=== PATIENT | female | born 1950 | race African-American/Black ===

== ENCOUNTER → 2017-01-21 | Outpatient (CLI) | payer OTHER ==
[~2017-01-21] MED LIST: ASPIRIN PO; ASPIRIN81 M2 PO; ATORVASTATIN; AUGMENTIN PO; BRILINTA90 MG PO; CARVEDILOL; CARVEDILOL25 MG PO; CETIRIZINE HCL10 MG PO; FLEXERIL PO; GABAPENTIN300 MG PO; HUMALOG100 U/ML; HYZAAR PO; LANTUS100 U/ML INJ; LANTUS100 UNITS/ SUBQ; LATANOPROST2.5 ML OU; LIPITOR80 MG PO; LISINOPRIL PO; LOPRESSOR PO; LOSARTAN; LOSARTAN-HCTZ1 EAC1 PO; METFORMIN PO; MICARDIS PO; NAPROXEN PO; NORCO 7.5-3251 EACH PO; NOVOLOG100 U/ML INJ; NOVOLOG100 UNITS/; PRED MILD5 ML OP; PROTONIX PO; TRAMADOL HCL50 M1 PO; XALATAN OP; ZESTORETIC 20/21 TAB PO; ZYRTEC PO; [UNRECOGNIZED DRUG - OTHER] PO
[2017-01-21 16:23] LABS: BUN/CREATININE RATIO 13.75; CALCIUM SERUM 9.3 mg/dL (8.4-10.2); CREATININE SERUM 1.6 mg/dL (0.6-1.4); GLOM FILT RATE Estimated 39.1 mL/min (>60); POTASSIUM 3.7 mmol/L (3.5-5.1)
== END | disposition home or self-care (01) ==
LOC: CAMB 14:29
PROVIDERS: Surgery
DX: Z01.812 Encounter for preprocedural laboratory examination (principal)
CPT/HCPCS: 36415; 80048

== ENCOUNTER → 2017-01-26 | Day surgery (SDC) | payer OTHER ==
--- NOTE | ~2017-01-26 | OR ---
Unit #: [id number] #: [id number] Patient: MENDEL YI [id number] [address] [place], [place] [address] [id number] MR#: [id number] NAME: MENDEL YI ROOM: Date of Procedure: 01/26/2017 Admission Date: 01/26/2017 Surgeon: Abhijit Lake M.D. : 1950 Attending Physician: Abhijit Lake M.D. Primary Care Physician: Richard Harris D.O. OPERATIVE REPORT PREOPERATIVE DIAGNOSIS Enlarging lipoma, right upper back. POSTOPERATIVE DIAGNOSIS Enlarging lipoma, right upper back. PROCEDURE PERFORMED Excision of enlarging lipoma, right upper back 6 x 6 cm with layered closure. ANESTHESIA General LMA anesthesia with 0.5% Marcaine plain local anesthesia. FINDINGS The area was consistent with a large lipoma. It was closed with a layered closure. SPECIMENS Sent to Pathology. COMPLICATIONS None apparent. CONDITION The patient tolerated the procedure well. INDICATIONS FOR PROCEDURE The patient is a 66-year-old black female, who has enlarging subcutaneous mass of the upper back consistent with enlarging lipoma. She presents at this time for excision for pathologic diagnosis and treatment. DESCRIPTION OF PROCEDURE After obtaining informed consent as well as receiving preoperative antibiotics, the patient was brought to the operating room and after adequate general LMA anesthesia was obtained, she was very carefully placed in the left lateral decubitus position with an axillary roll in place and all extremities manipulated very carefully and all pressure points were carefully padded. Her right upper back was prepped and draped in a sterile fashion. A transverse incision was made with a knife. It was taken down through the skin with a knife and through the subdermal tissues and subcutaneous tissues with electrocautery to the level of the lipoma. The lipoma was dissected free circumferentially with Unit #: [id number] #: [id number] Patient: MENDEL YI electrocautery using good hemostasis. It was fairly large and extended down to the muscular fascia. The lipoma was removed circumferentially with good hemostasis and sent to Pathology. The wound was irrigated and hemostasis was obtained with the Bovie, infiltrated with 0.5% Marcaine plain local anesthesia. The underside of the skin was tacked down to the muscular fascia with interrupted 3-0 Vicryl sutures. The subcutaneous and subdermal tissues were reapproximated with interrupted 3-0 Vicryl sutures taking a bite of the base of the wound to obliterate any space. The skin was closed with 4-0 Vicryl subcuticular stitch. Benzoin and Steri-Strips were applied over the wound in an occlusive manner followed by dry dressing and a Tegaderm dressing. Needle counts, sponge counts, and instrument counts were all correct as reported by the scrub nurse x2. The patient went from the operating room to the recovery room in stable condition. Dictated by... Ishan Paredes/yoli TD: 01/27/2017 03:06 JOB #: [id number] CC: [facility] OPERATIVE REPORT Page 1 of 1 X Abhijit Lake MD X PROCEDURE OPERATIVE NOTE
== END | disposition home or self-care (01) ==
LOC: CSUR 05:11
DX: D17.1 Benign lipomatous neoplasm of skin and subcutaneous tissue of trunk (principal); E11.9 Type 2 diabetes mellitus without complications; I25.10 Atherosclerotic heart disease of native coronary artery without angina pectoris; J44.9 Chronic obstructive pulmonary disease, unspecified; Z98.61 Coronary angioplasty status; I10 Essential (primary) hypertension; E78.5 Hyperlipidemia, unspecified; Z87.891 Personal history of nicotine dependence; K21.9 Gastro-esophageal reflux disease without esophagitis; Z90.710 Acquired absence of both cervix and uterus; Z79.4 Long term (current) use of insulin
CPT/HCPCS: 82947; 88304; J0690; J2250; J3010

== ENCOUNTER → 2017-02-20 | Outpatient (CLI) | payer OTHER ==
[2017-02-20 16:15] LABS: BUN/CREATININE RATIO 17.05; CALCIUM SERUM 9.7 mg/dL (8.4-10.2); CREATININE SERUM 1.7 mg/dL (0.6-1.4); GLOM FILT RATE Estimated 36.3 mL/min (>60); POTASSIUM 4.1 mmol/L (3.5-5.1)
== END | disposition home or self-care (01) ==
LOC: CAMB 14:00
PROVIDERS: Surgery
DX: Z01.812 Encounter for preprocedural laboratory examination (principal); D17.9 Benign lipomatous neoplasm, unspecified
CPT/HCPCS: 36415; 80048